=== PATIENT | male | born 1975 | race Caucasian/White ===

== ENCOUNTER 2018-02-26 16:17 | Emergency (ER) | payer OTHER, SELFPAY ==
[2018-02-26] MEDS ORDERED: TORAdol 30 mg Injection IM ONE (17:03)
[2018-02-26] MEDS ORDERED: Norflex 60 MG/2 ML IM ONE (17:03)
[2018-02-26] MEDS ORDERED: Celestone Soluspan 6MG/ML IM ONE (17:04)
--- NOTE | 2018-02-26 17:09 | ERPHSYRPT ---
- History of Present Illness Time Seen by Provider: 02/26/18 16:54 Source: patient, family Patient Subjective Stated Complaint: pt reports sciatic pain for 7 days. states his pain is to the left hip and sometimes back, his pain sometimes radiates down the back of his left leg. Triage Nursing Assessment: pt is aox3, pupils perrl, resps easy and non labored , skin is pink warm and dry. pt sensation intact to bilat lower extremities. pain to the left hip that radiates to the back and to the lower left extremity. pt denies injury. pt reports history of sciatica. pt is able to ambulate with some discomfort. Physician History: CC: back pain Hx: 42 y/o healthy man with hx of remote sciatica. Prior injury to his back. He has one week hx of low back pain and subsequent pain radiating down the left buttock and leg with mild numbness. No fever, chills. No urinary problems. No incontinence or hematuria. No hx of cancer. Pain moderate, worse with movement and not relieved with motrin. Timing/Duration: week(s) (1) Back Pain Location: lumbar spine Back Pain Radiation: buttocks (left) Severity of Pain-Max: moderate Severity of Pain-Current: moderate Allergies/Adverse Reactions: No Known Drug Allergies Allergy (Verified 02/26/18 16:39) Home Medications: Ibuprofen 200 mg [Motrin 200 mg] 800 mg PO Q4HPRN PRN 10/09/16 [History] Tizanidine HCl 4 mg [Zanaflex 4 MG] 4 mg PO Q6-8HPRN PRN 10/09/16 [History] Hx Tetanus, Diphtheria Vaccination/Date Given: No Hx Influenza Vaccination/Date Given: No Hx Pneumococcal Vaccination/Date Given: No Immunizations Up to Date: Yes - Review of Systems Constitutional: No Fever, No Chills Eyes: No Symptoms Ears, Nose, & Throat: No Symptoms Respiratory: No Cough Cardiac: No Chest Pain Abdominal/Gastrointestinal: Vomiting (one day last week), No Abdominal Pain Genitourinary Symptoms: No Dysuria, No Hematuria, No Incontinence, No Flank Pain , No Testicle Pain Musculoskeletal: Back Pain Skin: No Rash Neurological: Parasthesia (mild left), No Focal Weakness, No Headache All Other Systems: Reviewed and Negative - Past Medical History Pertinent Past Medical History: Yes Other Medical History: CHRONIC ALCOHOLISM, sciatica - Past Surgical History Past Surgical History: Yes Other Surgical History: COLOSTOMY REVERSAL A CHILD - Social History Smoking Status: Current every day smoker How long have you smoked: 25 Exposure to second hand smoke: Yes Drug Use: none Patient Lives Alone: No - Nursing Vital Signs Nursing Vital Signs: Initial Vital Signs Temperature 97.8 F 02/26/18 16:27 Pulse Rate 70 02/26/18 16:27 Respiratory Rate 20 02/26/18 16:27 Blood Pressure 137/82 02/26/18 16:27 O2 Sat by Pulse Oximetry 98 02/26/18 16:27 Pain Scale Pain Intensity 9 - Physical Exam General Appearance: alert Eye Exam: PERRL/EOMI Ears, Nose, Throat Exam: normal ENT inspection, moist mucous membranes Neck Exam: normal inspection, non-tender, supple Respiratory Exam: normal breath sounds Cardiovascular Exam: regular rate/rhythm Gastrointestinal Exam: soft, No tenderness, No distention, No mass, No guarding Male Genetalia Exam: normal genitalia, No testicular tenderness Back Exam: normal inspection, decreased range of motion, No CVA tenderness Extremity Exam: normal inspection, normal range of motion, No calf tenderness, No pedal edema, No tenderness Neurologic Exam: alert, oriented x 3, cooperative, sensation nml, other (3+ bilateral patellar MRS's symmetric), No motor deficits SpO2 Interpretation: normal SpO2: 98 Oxygen Delivery: Room Air - Course Nursing assessment & vital signs reviewed: Yes Ordered Tests: Medication Summary Generic Name Dose Route Start Last Admin Trade Name Freq PRN Reason Stop Dose Admin Betamethasone Acet/Betameth SodPhos 12 mg 02/26/18 17:04 Celestone Soluspan 6mg/Ml IM 02/26/18 17:05 STAT ONE Discontinued Medications Generic Name Dose Route Start Last Admin Trade Name Freq PRN Reason Stop Dose Admin Ketorolac Tromethamine 60 mg 02/26/18 17:03 Toradol 30 Mg Injection IM 02/26/18 17:04 STAT ONE Orphenadrine Citrate 60 mg 02/26/18 17:03 Norflex 60 Mg/2 Ml IM 02/26/18 17:04 STAT ONE - Progress Progress Note: 02/26/18 17:07 IM toradol, celestone, and norflex given. He has appt with Dr Grey next week for recheck. Instr given. Counseled pt/family regarding: diagnosis, need for follow-up - Departure Time of Disposition: 17:08 Departure Disposition: Home Clinical Impression: Back pain with left-sided sciatica Condition: Stable Critical Care Time: No Referrals: LOGAN GREY [Primary Care Provider] - Instructions: Sciatica (DC), Low Back Pain (DC) Additional Instructions: BACK INJURY 1. May apply moist heat frequently for relief of pain. Take care not to burn the skin. Do not use heat for more than 30 minutes at a time. 2. Try to sleep on a firm bed, flat on your back. 3. If no improvement is noticed in 2-3 days, follow up with your family physician. 4. If you notice any numbness, tingling, weakness, or problems with your bowel or bladder, you should call your family physician or return to the emergency department. Take ibuprofen 600mg every 6 hours with food. Rx norflex for muscle relaxer- next dose in AM. No driving or operating machinery. Follow up with Dr Grey. Prescriptions: Orphenadrine Citrate 100 mg [Norflex 100 MG Tablet] 1 tab PO BID #10 tab
[2018-02-26] MEDS ORDERED: TORAdol 30 mg Injection ONE (17:18)
[2018-02-26] MEDS ORDERED: Norflex 60 MG/2 ML ONE (17:18)
[2018-02-26] MEDS ORDERED: Celestone Soluspan 6MG/ML ONE (17:20)
[2018-02-26 17:45] VITALS: BP 160/98; PULSE 90; O2SAT 99
== END 2018-02-26 17:45 | disposition home or self-care (01) ==
LOC: ED 16:17
DX: M54.5 Low back pain (principal); M54.9 Dorsalgia, unspecified; M54.32 Sciatica, left side; M25.552 Pain in left hip
CPT/HCPCS: 96372; 99283; 99284; J0702; J1885; J2360

== ENCOUNTER 2019-06-22 11:56 | Observation (INO) | payer OTHER ==
[2019-06-22] MEDS ORDERED: Sodium Chloride 0.9% 1000 ML 1,000 ML IV STA (12:12)
[2019-06-22] MEDS ORDERED: TORAdol 30 mg Injection IV ONE (12:12)
--- NOTE | 2019-06-22 12:16 | ERPHSYRPT ---
- History of Present Illness Time Seen by Provider: 06/22/19 12:14 Historian: patient Patient Subjective Stated Complaint: pt reports right flank pain for 4-5 days, states it had improved but at 0300 today the pain became severe. pt states "i feel like there is a knife in my kidney" Triage Nursing Assessment: pt is aox3, appears in pain, pupils perrl, afebrile, resps easy and non labored, radial pulses strong and equal, cap refill < 3 seconds, pt abd soft non tender, no edema appreaciated, pt noted to be diaphoretic, skin intact. pain to the right flank that is non radiating in nature. Physician History: mild to mod off and on right flank ache pain today, no injury, nonrad, no fever , no NV Allergies/Adverse Reactions: tramadol Allergy (Verified 06/22/19 12:07) Home Medications: Ibuprofen 200 mg [Motrin 200 mg] 800 mg PO Q4HPRN PRN 10/09/16 [History] Hx Tetanus, Diphtheria Vaccination/Date Given: (unk) Hx Influenza Vaccination/Date Given: No Hx Pneumococcal Vaccination/Date Given: No Immunizations Up to Date: Yes - Review of Systems Constitutional: No Fever Eyes: No Vision Changes Ears, Nose, & Throat: No Mouth Pain Respiratory: No Symptoms Cardiac: No Symptoms Abdominal/Gastrointestinal: Abdominal Pain, No Vomiting Genitourinary Symptoms: No Dysuria Musculoskeletal: No Back Pain Skin: No Skin Lesions Neurological: No Dizziness - Past Medical History Pertinent Past Medical History: Yes Neurological History: No Pertinent History Cardiac History: No Pertinent History Respiratory History: No Pertinent History Endocrine Medical History: No Pertinent History Musculoskeletal History: Osteoarthritis Other Medical History: CHRONIC ALCOHOLISM, sciatica. degenerative disc disease - Past Surgical History Past Surgical History: Yes Other Surgical History: COLOSTOMY REVERSAL A CHILD - Social History Smoking Status: Current every day smoker How long have you smoked: 25 Exposure to second hand smoke: Yes Drug Use: none Patient Lives Alone: No - Nursing Vital Signs Nursing Vital Signs: Initial Vital Signs Temperature 97.5 F 06/22/19 11:57 Pulse Rate 81 06/22/19 11:57 Respiratory Rate 20 06/22/19 11:57 Blood Pressure 157/84 06/22/19 11:57 O2 Sat by Pulse Oximetry 98 06/22/19 11:57 Pain Scale Pain Intensity 7 - Physical Exam General Appearance: no apparent distress Eye Exam: eyes nml inspection Ears, Nose, Throat Exam: moist mucous membranes Neck Exam: normal inspection Respiratory Exam: No respiratory distress Cardiovascular Exam: regular rate/rhythm Gastrointestinal/Abdomen Exam: soft, tenderness, No rebound Back Exam: CVA tenderness, No vertebral tenderness Extremity Exam: normal range of motion Neurologic Exam: alert, oriented x 3 Skin Exam: warm, dry SpO2 Interpretation: normal SpO2: 98 - Course Nursing assessment & vital signs reviewed: Yes - CT Exams Abdomen/Pelvis CT Interpretation: Discussed w/radiologist, Other (stone in the appendix w/o appendicitis, no renal stone or obstruction seen) Ordered Tests: Active Orders 24 hr Category Date Time Status IV Insertion STAT Care 06/22/19 12:12 Active ABDOMEN AND PELVIS W/0 CONTRAS [CT] Stat Exams 06/22/19 14:03 Completed CBC W DIFF Stat Lab 06/22/19 12:27 Completed CMP Stat Lab 06/22/19 12:27 Completed LIPASE Stat Lab 06/22/19 12:27 Completed UA W/RFX UR CULTURE Stat Lab 06/22/19 12:13 Completed Transfer Order Routine Transfer 06/22/19 Ordered Medication Summary Discontinued Medications Generic Name Dose Route Start Last Admin Trade Name Freq PRN Reason Stop Dose Admin Hydromorphone HCl 1 mg 06/22/19 13:42 06/22/19 13:49 Hydromorphone 1 Mg/Ml Ampule IV 06/22/19 13:43 1 mg STAT ONE Administration Hydromorphone HCl Confirm 06/22/19 13:46 Hydromorphone 1 Mg/Ml Ampule Administered 06/22/19 13:47 Dose 1 mg .ROUTE .STK-MED ONE Sodium Chloride 1,000 mls @ 999 mls/hr 06/22/19 12:12 06/22/19 13:43 Sodium Chloride 0.9% 1000 Ml IV 06/22/19 13:12 Infused .Q1H1M STA Infusion Sodium Chloride Confirm 06/22/19 12:40 Sodium Chloride 0.9% 1000 Ml Administered 06/22/19 12:41 Dose 1,000 mls @ ud .ROUTE .STK-MED ONE Ketorolac Tromethamine 30 mg 06/22/19 12:12 06/22/19 12:49 Toradol 30 Mg Injection IV 06/22/19 12:13 30 mg STAT ONE Administration Ketorolac Tromethamine Confirm 06/22/19 12:40 Toradol 30 Mg Injection Administered 06/22/19 12:41 Dose 30 mg .ROUTE .STK-MED ONE Lab/Rad Data: Laboratory Result Diagrams 06/22/19 12:27 06/22/19 12:27 Laboratory Results 06/22/19 06/22/19 06/22/19 Range/Units 12:27 12:27 12:13 WBC 12.9 H (4.0-10.5) K/mm3 RBC 4.40 (4.1-5.6) M/mm3 Hgb 14.5 (12.5-18.0) gm/dl Hct 40.7 L (42-50) % MCV 92.5 (78-100) fl MCH 33.0 H (26-32) pg MCHC 35.6 (32-36) g/dl RDW 12.6 (11.5-14.0) % Plt Count 213 (150-450) K/mm3 MPV 9.6 H (6-9.5) fl Gran % 67.2 H (36.0-66.0) % Eos # (Auto) 0.22 (0-0.5) Absolute Lymphs (auto) 3.22 (1.0-4.6) Absolute Monos (auto) 0.76 (0.0-1.3) Lymphocytes % 24.9 (24.0-44.0) % Monocytes % 5.9 (0.0-12.0) % Eosinophils % 1.7 (0.00-5.0) % Basophils % 0.3 (0.0-0.4) % Absolute Granulocytes 8.69 H (1.4-6.9) Basophils # 0.04 (0-0.4) Sodium 141 (137-145) mmol/L Potassium 3.9 (3.5-5.1) mmol/L Chloride 110 H (98-107) mmol/L Carbon Dioxide 24 (22-30) mmol/L Anion Gap 11.2 (5-15) MEQ/L BUN 17 (9-20) mg/dL Creatinine 0.67 (0.66-1.25) mg/dL Estimated GFR > 60.0 ML/MIN Glucose 123 H (74-106) mg/dL Calcium 10.2 (8.4-10.2) mg/dL Total Bilirubin 0.50 (0.2-1.3) mg/dL AST 29 (17-59) U/L ALT 18 (0-50) U/L Alkaline Phosphatase 84 (38-126) U/L Serum Total Protein 7.4 (6.3-8.2) g/dL Albumin 4.3 (3.5-5.0) g/dL Lipase 44 (23-300) U/L Urine Color YELLOW (YELLOW) Urine Appearance SLIGHTLY CLOUDY (CLEAR) Urine pH 6.0 (5-6) Ur Specific [place] 1.017 (1.005-1.025) Urine Protein NEGATIVE (Negative) Urine Ketones NEGATIVE (NEGATIVE) Urine Blood SMALL (0-5) Gabe/ul Urine Nitrite NEGATIVE (NEGATIVE) Urine Bilirubin NEGATIVE (NEGATIVE) Urine Urobilinogen 4 (0-1) mg/dL Ur Leukocyte Esterase NEGATIVE (NEGATIVE) Urine WBC (Auto) 3-5 (0-5) /HPF Urine RBC (Auto) 3-5 (0-2) /HPF U Epithel Cells (Auto) NONE (FEW) /HPF Urine Bacteria (Auto) RARE (NEGATIVE) /HPF Urine Mucus (Auto) SLIGHT (NEGATIVE) /HPF Urine Culture Reflexed NO (NO) Urine Glucose NEGATIVE (NEGATIVE) mg/dL - Progress Progress: improved Progress Note: differential includes occult renal stone or early appendicitid 06/22/19 15:23 consult d/w Dr Cheney 06/22/19 15:23 Discussed with : Que Will see patient in: hospital (observation) - Departure Departure Disposition: Observation Clinical Impression: Abdominal pain Qualifiers: Abdominal location: right lower quadrant Qualified Code(s): R10.31 - Right lower quadrant pain Condition: Good Critical Care Time: No Referrals: LOGAN SULLIVAN [Primary Care Provider] -
[2019-06-22 12:32] LABS: BASOPHIL % 0.3 % (0.0-0.4); Basophil (Absolute #) 0.04 (0-0.4); Eosinophil % 1.7 % (0.00-5.0); Eosinophil (Absolute #) 0.22 (0-0.5); Granulocyte Absolute (ANC) 8.69 (1.4-6.9); Granulocytes % 67.2 % (36.0-66.0); Hematocrit 40.7 % (42-50); Hemoglobin 14.5 gm/dl (12.5-18.0); Lymphocyte (Absolute #) 3.22 (1.0-4.6); Lymphocytes % 24.9 % (24.0-44.0); Mean Cell Volume 92.5 fl (78-100); Mean Corpuscular Hgb Concent. 35.6 g/dl (32-36); Mean Platelet Volume 9.6 fl (6-9.5); Monocyte (Absolute #) 0.76 (0.0-1.3); Monocytes % 5.9 % (0.0-12.0); Platelet Count 213 K/mm3 (150-450); Red Cell Distribution Width 12.6 % (11.5-14.0); White Blood Count 12.9 K/mm3 (4.0-10.5)
[2019-06-22] MEDS ORDERED: TORAdol 30 mg Injection ONE (12:40)
[2019-06-22] MEDS ORDERED: Sodium Chloride 0.9% 1000 ML 1,000 ML ONE (12:40)
[2019-06-22 12:43] LABS: ALBUMIN 4.3 g/dL (3.5-5.0); ALKALINE PHOSPHATASE 84 U/L (38-126); ANION GAP 11.2 MEQ/L (5-15); BLOOD UREA NITROGEN 17 mg/dL (9-20); CHLORIDE 110 mmol/L (98-107); Calcium 10.2 mg/dL (8.4-10.2); Carbon Dioxide 24 mmol/L (22-30); Creatinine 1 0.67 mg/dL (0.66-1.25); Glucose 123 mg/dL (74-106); LIPASE 44 U/L (23-300); Potassium 3.9 mmol/L (3.5-5.1); SGOT/AST 29 U/L (17-59); SGPT/ALT 18 U/L (0-50); SODIUM 141 mmol/L (137-145); Total Protein 7.4 g/dL (6.3-8.2)
[2019-06-22] MEDS ORDERED: Hydromorphone 1 mg/ml Ampule IV ONE (13:42)
[2019-06-22] MEDS ORDERED: Hydromorphone 1 mg/ml Ampule ONE (13:46)
[2019-06-22 14:05] LABS: Appearance SLIGHTLY CLOUDY (CLEAR); Bacteria RARE /HPF (NEGATIVE); Bilirubin NEGATIVE (NEGATIVE); Blood SMALL Ery/ul (0-5); Glucose NEGATIVE (NEGATIVE); Ketones NEGATIVE (NEGATIVE); Leukocyte Esterase NEGATIVE (NEGATIVE); Mucus SLIGHT /HPF (NEGATIVE); Nitrite NEGATIVE (NEGATIVE); Protein,Urine Dip NEGATIVE (Negative); Specific Gravity 1.017 (1.005-1.025); Urobilinogen 4 mg/dL (0-1)
--- NOTE | 2019-06-22 14:31 | XRAY ---
Indication: Right flank pain. Multiple contiguous axial images obtained through the abdomen and pelvis without contrast using renal stone protocol. Comparison: None Lung bases demonstrates mild bibasilar dependent atelectasis and right lower lobe calcified granuloma. No infiltrate or effusion. Heart is not enlarged. No renal calculus or evidence for obstructive uropathy in either system. Stomach distended with food/fluid. Noncontrasted stomach and bowel loops appear nonobstructed. Appendix demonstrates appendicolith without appendicitis. Mild diffuse scattered colonic fecal debris throughout. No free fluid/air. Remaining liver, gallbladder, pancreas, spleen, adrenal glands, kidneys, ureters, and bladder appear unremarkable for noncontrast exam. Minimal aortoiliac calcifications without AAA. Osseous structures intact with small multilevel thoracolumbar Schmorls. No ventral inguinal hernias. Impression: 1. Negative renal calculus or evidence for obstructive uropathy. 2. Diffuse fecal stasis without obstruction. 3. Incidental appendicolith without appendicitis. CT DI 12.47
[2019-06-22] MEDS ORDERED: DILAUDID 2 MG INJECTION IV PRN (15:44)
[2019-06-22] MEDS ORDERED: Nicoderm CQ 21 MG TOP SCH (16:00)
[2019-06-22] MEDS: Sodium Chloride 0.9% 1000 ML 1,000 ML IV SCH (16:10)
[2019-06-22] MEDS ORDERED: PERCOCET TABLET 5/325MG PO PRN (16:35)
[2019-06-22] MEDS ORDERED: Zofran 4 MG/2 ML VIAL IV PRN (16:40)
[2019-06-22] MEDS: Zosyn 3.375GM/100 Ml D5W 3.375 GM/100 ML IVPB IV SCH ×2 (17:11→23:19)
[2019-06-22 17:57] LABS: Eosinophil 2 % (0.00-3.0); Lymphocytes 28 % (24-44); Monocyte 4 % (0.0-12.0); Neutrophils 66 % (36.-66.); Total Cells Counted 100
[2019-06-22 17:58] LABS: Platelet Estimate NORMAL (NORMAL)
[2019-06-22] MEDS: DILAUDID 2 MG INJECTION IV PRN (18:39)
[2019-06-23] MEDS: DILAUDID 2 MG INJECTION IV PRN (00:09)
[2019-06-23] MEDS: Sodium Chloride 0.9% 1000 ML 1,000 ML IV SCH (03:00)
[2019-06-23] MEDS: Zosyn 3.375GM/100 Ml D5W 3.375 GM/100 ML IVPB IV SCH (05:15)
[2019-06-23 05:56] LABS: BASOPHIL % 0.2 % (0.0-0.4); Basophil (Absolute #) 0.02 (0-0.4); Eosinophil % 0.4 % (0.00-5.0); Eosinophil (Absolute #) 0.05 (0-0.5); Granulocyte Absolute (ANC) 8.73 (1.4-6.9); Granulocytes % 71.2 % (36.0-66.0); Hematocrit 34.9 % (42-50); Hemoglobin 12.2 gm/dl (12.5-18.0); Lymphocyte (Absolute #) 2.69 (1.0-4.6); Mean Cell Volume 94.3 fl (78-100); Mean Platelet Volume 9.9 fl (6-9.5); Monocyte (Absolute #) 0.76 (0.0-1.3); Monocytes % 6.2 % (0.0-12.0); Platelet Count 193 K/mm3 (150-450); Red Cell Distribution Width 12.6 % (11.5-14.0); White Blood Count 12.3 K/mm3 (4.0-10.5)
[2019-06-23 06:02] LABS: Mean Corpuscular Hemoglobin 32.9 pg (26-32)
[2019-06-23 07:49] VITALS: BP 111/63; PULSE 69; O2SAT 96
--- NOTE | 2019-06-23 07:55 | HP ---
CHIEF COMPLAINT: Right posterior flank pain. HISTORY OF PRESENT ILLNESS: The patient is a 44 year-old white male who reports he had pain beginning in his right flank approximately five days ago. Since that time he has been pushing fluids and cranberry juice and had felt pretty good. Yesterday he had no pain whatsoever but this morning he woke up with pain in his right flank so severe that he was writhing in pain on the ground. The patient denies any previous history of any kidney stones. He has not had trouble with nausea, vomiting or diarrhea. There has been no recent fever, chills or sweats. He denies any family history of other issues except his father did have a blood clot in his lung. PAST MEDICAL/SURGICAL HISTORY: Otherwise significant for spondylolisthesis for which he takes Zanaflex and ibuprofen on a PRN basis. HOME MEDICATIONS: Zanaflex, ibuprofen PRN. ALLERGIES: TRAMADOL. HE REPORTS IT KEPT HIM AWAKE FOR 36 HOURS. PHYSICAL EXAMINATION: His vital signs showed a temperature of 97.5F, pulse 81, respiratory rate 20 and blood pressure 157/84. O2 saturation 98%. HEENT: Normocephalic, atraumatic. Pupils equal round reactive to light. Extraocular movements intact. Oropharynx is pink and moist. NECK: Supple without lymphadenopathy, thyromegaly or JVD. CHEST: Clear to auscultation with good air movement bilaterally. HEART: Regular rate and rhythm without murmurs, rubs or gallops. ABDOMEN: Soft. No palpable masses. There is no guarding or rebound. There is no right flank tenderness on percussion or palpation. EXTREMITIES: Without cyanosis, clubbing or edema. NEUROLOGIC: The patient is alert and oriented x3. No focal deficits were noted. LAB DATA AND TESTS: CT scan showed negative for renal calculus or evidence of obstructive uropathy, diffuse fecal stasis without obstruction, incidental appendicolith without appendicitis. UA with specific gravity was 1.017, slightly cloudy, 3 to 5 white blood cells, 3 to 5 red blood cells, negative nitrite. There was noted to be 12,900 white count with hemoglobin 14.5, PLT 213,000, granulocytes 67.2%. His metabolic panel glucose 123, BUN 17, creatinine 0.67. Liver enzymes were normal. Lipase was normal. ASSESSMENT: A patient with right flank pain of unknown etiology. At this point I feel most likely that he actually passed a small stone as this fits his scenario most likely. We are also considering issues with his back causing the pain as he previously had issues with his back and had injections as well. We will also check a D-dimer to rule out any evidence of possibility of pulmonary embolism although his saturations are normal and CT scan did not show any evidence in the right base or any mention of pulmonary problems. The patient has currently been placed on PRN Dilaudid and Percocet before the Dilaudid to see if it will control his pain well enough. He will be left with clear liquids to advance his diet as tolerated. We will obtain cultures of blood in urine and place him empirically on Zosyn for protection. He has possibility of developing pyelonephritis or other infectious processes.
--- NOTE | 2019-06-23 08:39 | XRAY ---
Indication: Abdomen pain. Two-dimensional gallbladder sonogram performed. Comparison: None Gallbladder normally distended without gallstones, wall thickening, or pericholecystic fluid. Common bile duct measures 3.4 mm. No intrahepatic biliary distention. Visualized portions of the liver, pancreas, and right kidney appear sonographically unremarkable. Right kidney measures 10.5 cm in length. No ascites. Impression: Negative gallbladder sonogram.
[2019-06-23] MEDS ORDERED: TYLENOL 325 MG PO PRN (08:55)
[2019-06-23] MEDS ORDERED: NICOTINE PATCH 7MG TD SCH (10:00)
== END 2019-06-23 10:20 | disposition home or self-care (01) ==
LOC: ED 11:56 → MED SURG 15:43
PROVIDERS: ADMIT Family Medicine; ATTEND Family Medicine
DX: R10.31 Right lower quadrant pain (principal); M43.10 Spondylolisthesis, site unspecified; F17.200 Nicotine dependence, unspecified, uncomplicated
CPT/HCPCS: 36000; 36415; 74176; 76705; 80053; 81001; 83690; 85025; 85379; 87040; 87086; 96360; 96374; 96375; 99285; G0378; J1170; J1885; J2405; J2543; A9270-GY

== ENCOUNTER 2020-10-18 01:45 | Emergency (ER) | payer OTHER ==
[2020-10-18 01:47] VITALS: O2SAT 100
--- NOTE | 2020-10-18 02:04 | ERPHSYRPT ---
- History of Present Illness Time Seen by Provider: 10/18/20 01:53 Source: patient Exam Limitations: no limitations Physician History: pt is brought by police for med clearance prior to being placed in longterm for intoxication with ETOH. THe pt denies any symptoms or injuries or traumas. He is a former alcoholic who had been sober until the past few weeks but has been drinking this time on a relapse due to loss of fiance . He states he has no suicidal or homicidal ideations and has not ingested anything else and has no other drug use. he last ingested alcohol at 9 pm and has been in custody since 12 30 this am. he plans to seek counselling for his ETOH and has been advised to return if any signs of DTs in the meantime. he has no symptoms at this time. Timing/Duration: today Severity: moderate Associated Symptoms: denies symptoms Allergies/Adverse Reactions: tramadol Allergy (Verified 10/18/20 01:55) Home Medications: No Reportable Medications [No Reported Medications] 10/18/20 [History] Hx Tetanus, Diphtheria Vaccination/Date Given: (unk) Hx Influenza Vaccination/Date Given: No Hx Pneumococcal Vaccination/Date Given: No - Review of Systems Constitutional: No Fever, No Chills Eyes: No Symptoms Ears, Nose, & Throat: No Symptoms Respiratory: No Cough, No Dyspnea Cardiac: No Chest Pain, No Edema, No Syncope Abdominal/Gastrointestinal: No Abdominal Pain, No Nausea, No Vomiting, No Diarrhea Genitourinary Symptoms: No Dysuria Musculoskeletal: No Back Pain, No Neck Pain Skin: No Rash Neurological: No Dizziness, No Focal Weakness, No Sensory Changes Psychological: No Symptoms Endocrine: No Symptoms All Other Systems: Reviewed and Negative - Past Medical History Pertinent Past Medical History: Yes Neurological History: No Pertinent History ENT History: No Pertinent History Cardiac History: No Pertinent History Respiratory History: No Pertinent History Endocrine Medical History: No Pertinent History Musculoskeletal History: Osteoarthritis GI Medical History: No Pertinent History History: No Pertinent History Psycho-Social History: No Pertinent History Male Reproductive Disorders: No Pertinent History Other Medical History: CHRONIC ALCOHOLISM, sciatica. degenerative disc disease - Past Surgical History Past Surgical History: Yes Neuro Surgical History: No Pertinent History Cardiac: No Pertinent History Respiratory: No Pertinent History Gastrointestinal: No Pertinent History Genitourinary: No Pertinent History Musculoskeletal: No Pertinent History Male Surgical History: No Pertinent History Other Surgical History: COLOSTOMY REVERSAL A CHILD - Social History Smoking Status: Current every day smoker How long have you smoked: 30 Exposure to second hand smoke: Yes Drug Use: none Patient Lives Alone: No - Nursing Vital Signs Nursing Vital Signs: Initial Vital Signs Temperature 98.1 F 10/18/20 01:46 Pulse Rate 108 H 10/18/20 01:46 Respiratory Rate 17 10/18/20 01:46 Blood Pressure 134/86 10/18/20 01:46 O2 Sat by Pulse Oximetry 100 10/18/20 01:46 Pain Scale Pain Intensity 0 - Physical Exam General Appearance: no apparent distress, alert Eye Exam: PERRL/EOMI, eyes nml inspection Ears, Nose, Throat Exam: normal ENT inspection, TMs normal, pharynx normal, mo ist mucous membranes Neck Exam: normal inspection, non-tender, supple, full range of motion Respiratory Exam: normal breath sounds, lungs clear, No respiratory distress Cardiovascular Exam: regular rate/rhythm, normal heart sounds, normal peripheral pulses Gastrointestinal/Abdomen Exam: soft, normal bowel sounds, No tenderness, No mass Back Exam: normal inspection, normal range of motion, No CVA tenderness, No vertebral tenderness Extremity Exam: normal inspection, normal range of motion, pelvis stable Neurologic Exam: alert, oriented x 3, cooperative, normal mood/affect, nml cerebellar function, nml station & gait, sensation nml, No motor deficits Skin Exam: normal color, warm, dry, No rash Lymphatic Exam: No adenopathy SpO2: 100 - Course Nursing assessment & vital signs reviewed: Yes Ordered Tests: Active Orders 24 hr Category Date Time Status ACETAMINOPHEN Stat Lab 10/18/20 02:25 Completed SALICYLATE Stat Lab 10/18/20 02:25 Completed Urine Triage Profile Stat Lab 10/18/20 02:08 Completed Lab/Rad Data: Laboratory Results 10/18/20 10/18/20 Range/Units 02:25 02:08 Salicylates < 1.0 L (2-20) mg/dL Urine Opiates Level NEGATIVE (NEGATIVE) Ur Methadone NEGATIVE (NEGATIVE) Acetaminophen < 10 L (10-30) ug/ml Urine Barbiturates NEGATIVE (NEGATIVE) Ur Phencyclidine (PCP) NEGATIVE (NEGATIVE) Urine Amphetamine NEGATIVE (NEGATIVE) U Benzodiazepine Level NEGATIVE (NEGATIVE) Urine Cocaine NEGATIVE (NEGATIVE) Urine Marijuana (THC) NEGATIVE (NEGATIVE) - Progress Progress: unchanged, improved Progress Note: 10/18/20 03:03 the pt has remained alert after 2 hours of observation and 2.5 hrs in custody without increased somnolence from any further etoh absorption, and so is safe for DC from the standpoint of etoh overdose. Counseled pt/family regarding: drug and/or alcohol abuse, lab results, diagnosis, need for follow-up - Departure Departure Disposition: Penitentiary/Nursing Home Clinical Impression: H/O ETOH abuse, relapse from alcoholism Condition: Good Critical Care Time: No Referrals: LOGAN SULLIVAN [Primary Care Provider] - Instructions: Alcohol Withdrawal (DC), Alcohol Abuse and Alcoholism (DC) Additional Instructions: continue your plan to become alcohol free again with your support system of friends and family to help as you advised us is in place. In case you develop the shakes or alcohol withdrawal we are providing instructions of symptoms to look out for - return if these occur.
[2020-10-18 02:47] LABS: ACETAMINOPHEN < 10 ug/ml (10-30); SALICYLATE < 1.0 mg/dL (2-20)
[2020-10-18 02:52] LABS: Amphetamine,Urine NEGATIVE (NEGATIVE); Barbiturate,Urine NEGATIVE (NEGATIVE); Benzodiazepine,Urine NEGATIVE (NEGATIVE); Cocaine,Urine NEGATIVE (NEGATIVE); Methadone,Urine NEGATIVE (NEGATIVE); Opiate,Urine NEGATIVE (NEGATIVE); PCP,Urine NEGATIVE (NEGATIVE); THC,Urine NEGATIVE (NEGATIVE)
[2020-10-18 03:15] VITALS: BP 125/92; PULSE 82
== END 2020-10-18 03:15 | disposition home or self-care (01) ==
LOC: ED 01:45
DX: F10.11 Alcohol abuse, in remission (principal)
CPT/HCPCS: 36415; 80307; 99283

== ENCOUNTER 2025-08-01 11:10 | Day surgery (SDC) | payer OTHER ==
[2025-08-01] MEDS ORDERED: BUPIVACAINE 0.5% VIAL IJ ONE (11:11)
[2025-08-01] MEDS ORDERED: methylPREDNISolone acetate IM ONE (11:11)
[2025-08-01] MEDS ORDERED: propofoL IV ONE (12:59)
[2025-08-01] MEDS ORDERED: Lactated Ringers 1,000 ML IV ONE (13:38)
--- NOTE | 2025-08-01 17:00 | XRAY ---
Indication: Bilateral L4-S1 MBB. Intraoperative fluoroscopy provided for 8 seconds. Single digital spot image submitted for interpretation demonstrates posterior needle tips projecting over expected left and right L4-S1 nerve roots. Correlate with intraoperative findings/report.
--- NOTE | 2025-08-01 17:07 | XRAY ---
8 seconds of fluoroscopy was used in surgery for a bilateral L4-S1 MBB.
== END 2025-08-01 13:25 | disposition home or self-care (01) ==
LOC: SDC-PAIN 11:10
PROVIDERS: ATTEND Psychiatry & Neurology Pain Medicine
DX: M47.817 Spondylosis without myelopathy or radiculopathy, lumbosacral region (principal)

== ENCOUNTER 2025-09-12 10:01 | Day surgery (SDC) | payer OTHER ==
[2025-09-12] MEDS ORDERED: BUPIVACAINE 0.5% VIAL IJ ONE (10:02)
[2025-09-12] MEDS ORDERED: methylPREDNISolone acetate IM ONE (10:02)
[2025-09-12] MEDS ORDERED: LIDOCAINE HCL 1% 50 MG/5 ML VL IJ ONE (10:02)
[2025-09-12] MEDS ORDERED: propofoL IV ONE (12:28)
[2025-09-12] MEDS ORDERED: Lactated Ringers 1,000 ML IV ONE (14:03)
--- NOTE | 2025-09-12 15:01 | XRAY ---
Indication: Right L4-S1 RFA. Intraoperative fluoroscopy provided for 26 seconds. 3 digital spot image submitted for interpretation demonstrates posterior needle tips projecting over expected right L4-S1 nerve roots. Correlate with intraoperative findings/report.
--- NOTE | 2025-09-12 17:09 | XRAY ---
26 seconds of fluoroscopy was used in surgery for a right L4-S1 RFA.
== END 2025-09-12 13:05 | disposition home or self-care (01) ==
LOC: SDC-PAIN 10:01
PROVIDERS: ATTEND Psychiatry & Neurology Pain Medicine
DX: M47.817 Spondylosis without myelopathy or radiculopathy, lumbosacral region (principal)

== ENCOUNTER 2025-09-26 10:01 | Day surgery (SDC) | payer OTHER ==
[2025-09-26] MEDS ORDERED: BUPIVACAINE 0.5% VIAL IJ ONE (10:02)
[2025-09-26] MEDS ORDERED: methylPREDNISolone acetate IM ONE (10:02)
[2025-09-26] MEDS ORDERED: LIDOCAINE HCL 1% 50 MG/5 ML VL IJ ONE (10:02)
[2025-09-26] MEDS ORDERED: propofoL IV ONE (12:27)
--- NOTE | 2025-09-26 13:58 | XRAY ---
Indication: Left L4-S1 RFA. Intraoperative fluoroscopy provided for 16 seconds. 3 digital spot image submitted for interpretation demonstrates posterior needle tips projecting over expected left L4-S1 nerve roots. Correlate with intraoperative findings/report.
--- NOTE | 2025-09-26 14:00 | XRAY ---
16 seconds of fluoroscopy was used in surgery for a left L4-S1 RFA.
[2025-09-26] MEDS ORDERED: Lactated Ringers 1,000 ML IV ONE (14:02)
== END 2025-09-26 13:00 | disposition home or self-care (01) ==
LOC: SDC-PAIN 10:01
PROVIDERS: ATTEND Psychiatry & Neurology Pain Medicine
DX: M47.817 Spondylosis without myelopathy or radiculopathy, lumbosacral region (principal)

== ENCOUNTER 2025-10-04 12:57 | Emergency (ER) | payer OTHER ==
[2025-10-04 13:10] VITALS: TEMP 96.9
[2025-10-04 13:13] VITALS: O2SAT 100
[2025-10-04] MEDS ORDERED: PERCOCET TABLET 5/325MG ONE ×2 (13:39→14:01)
[2025-10-04] MEDS: PERCOCET TABLET 5/325MG PO STA ×2 (13:41→14:05)
--- NOTE | 2025-10-04 13:45 | XRAY ---
Indication: Fall injury. Comparison: None 3 view right shoulder demonstrates osteopenia, moderate AC degenerative arthropathy, minimal/mild multilevel cervicothoracic degenerative spondylosis, and minimal levoscoliosis. No acute bony, articular, or soft tissue abnormalities.
--- NOTE | 2025-10-04 13:59 | ERPHSYRPT ---
- History of Present Illness Time Seen by Provider: 10/04/25 13:17 Source: patient Exam Limitations: no limitations Patient Subjective Stated Complaint: fell on his right shoulder on log pile on Wednesday Triage Nursing Assessment: patient was driven in today by partner he says he fell on his right shoulder on corner of wood burner on wednesday. he's been i nbed in pain since then. no open areas, skin warm dry and intact, patient able to ambulate by self and gait is steady. patient alert and orientedx3. Physician History: 50-year-old male presents to the emergency room right shoulder pain patient reports he was scooping wood into a food fire he started having pain on Wednesday patient reports she has been trying [id number] medications with minimal relief patient denies any other injuries now in ED for further eval Occurred: days ago (4) Method of Injury: unknown Quality: constant Severity of Pain-Max: mild Extremities Pain Location: shoulder: right Modifying Factors: Improves With: nothing Associated Symptoms: none Allergies/Adverse Reactions: tramadol Allergy (Verified 10/04/25 13:15) Home Medications: Lisinopril 10 mg [Zestril 10 MG] 10 mg PO DAILY 07/29/25 [History] Hx Tetanus, Diphtheria Vaccination/Date Given: No Hx Influenza Vaccination/Date Given: No Hx Pneumococcal Vaccination/Date Given: No Immunizations Up to Date: No Travel Risk - International Travel Have you traveled outside of the country in past 3 weeks: No - Emerging Infectious Disease Are you exhibiting symptoms associated with any current EIDs: No - Review of Systems Constitutional: No Fever, No Chills Eyes: No Symptoms Ears, Nose, & Throat: No Symptoms Respiratory: No Cough, No Dyspnea Cardiac: No Chest Pain, No Edema, No Syncope Abdominal/Gastrointestinal: No Abdominal Pain, No Nausea, No Vomiting, No Diarrhea Genitourinary Symptoms: No Dysuria Musculoskeletal: Other (shoulder pain), No Back Pain, No Neck Pain Skin: No Rash Neurological: No Dizziness, No Focal Weakness, No Sensory Changes Psychological: No Symptoms Endocrine: No Symptoms All Other Systems: Reviewed and Negative - Past Medical History Pertinent Past Medical History: Yes Neurological History: No Pertinent History ENT History: No Pertinent History Cardiac History: Hypertension Respiratory History: No Pertinent History Endocrine Medical History: No Pertinent History Musculoskeletal History: Osteoarthritis GI Medical History: No Pertinent History History: No Pertinent History Psycho-Social History: No Pertinent History Male Reproductive Disorders: No Pertinent History Other Medical History: CHRONIC ALCOHOLISM (quit April 28, 2025) sciatica. 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 Mckee - Social History Smoking Status: Current some day smoker How long have you smoked: 40 yrs Drug Use: none - Social Determinants of Health Will the patient participate in the screening: Yes Do you worry about a steady place to live?: No Do you have any problems with any of the following?: No known problems In the past 12 months,have you had to go without utilities?: No Transportation Issues: No Has anyone in your support network made you feel unsafe?: No Have you or anyone in your house had to go w/o enough food: No - Nursing Vital Signs Nursing Vital Signs: Initial Vital Signs Temperature 96.9 F 10/04/25 12:58 Pulse Rate 101 H 10/04/25 12:58 Respiratory Rate 20 10/04/25 12:58 Blood Pressure 138/87 10/04/25 12:58 O2 Sat by Pulse Oximetry 99 10/04/25 12:58 Pain Scale Pain Intensity 10 - Physical Exam General Appearance: alert Eyes, Ears, Nose, Throat Exam: moist mucous membranes Neck Exam: non-tender, supple Cardiovascular/Respiratory Exam: chest non-tender, normal breath sounds, regular rate/rhythm, no respiratory distress Abdominal Exam: non-tender, No guarding Back Exam: normal inspection, No vertebral tenderness Shoulder Exam: pain (right shoulder), swelling Neuro/Tendon Exam: normal sensation, normal motor functions Mental Status Exam: alert, oriented x 3, cooperative Skin Exam: normal color, warm, dry SpO2: 100 Ordered Tests: Active Orders 24 hr Category Date Time Status SHOULDER Stat Exams 10/04/25 13:09 Completed Medication Summary Discontinued Medications Generic Name Dose Route Start Last Admin Trade Name Freq PRN Reason Stop Dose Admin Oxycodone/Acetaminophen 1 tab 10/04/25 13:36 10/04/25 13:41 Oxycodone Hcl/Apap 5 Mg/325 Mg Tablet PO 10/04/25 13:37 1 tab STAT STA Administration Oxycodone/Acetaminophen Confirm 10/04/25 13:39 Oxycodone Hcl/Apap 5 Mg/325 Mg Tablet Administered 10/04/25 13:40 Dose 1 tab .ROUTE .STK-MED ONE - Progress Progress Note: 10/04/25 13:54 3 view right shoulder demonstrates osteopenia, moderate AC degenerative arthropathy, minimal/mild multilevel cervicothoracic degenerative spondylosis, and minimal levoscoliosis. No acute bony, articular, or soft tissue abnormalities. 10/04/25 14:01 Patient has extensive A/C joint degenerative arthropathy patient was given prescription for Flexeril, was given a few tablets of Percocet patient be discharged he has a follow-up appointment on the with Dr. Miller ortho. 10/04/25 14:01 - Departure Departure Disposition: Home Clinical Impression: AC joint arthropathy Shoulder pain Qualifiers: Chronicity: acute Laterality: right Qualified Code(s): M25.511 - Pain in right shoulder Condition: Stable Critical Care Time: No Referrals: LOGAN SULLIVAN [[facility] Care Provider, [facility]] - Follow up/PCP as directed Instructions: Shoulder Sprain (DC), Shoulder Tendinopathy (DC) Prescriptions: Cyclobenzaprine HCl 10 mg [Cyclobenzaprine 10 MG] 10 mg PO QHS PRN #7 tablet PRN Reason: Muscle Spasms
[2025-10-04 14:00] VITALS: RESP 18
[2025-10-04 14:05] VITALS: BP 122/87; PULSE 75
== END 2025-10-04 14:14 | disposition home or self-care (01) ==
LOC: ED 12:57
DX: M19.011 Primary osteoarthritis, right shoulder (principal); M25.511 Pain in right shoulder; I10 Essential (primary) hypertension; Z79.899 Other long term (current) drug therapy; Z72.0 Tobacco use